=== PATIENT | female | born 1990 | race Caucasian/White ===

== ENCOUNTER 2017-06-11 16:48 | Inpatient (IN) | payer MEDICAID ==
[~2017-06-11] VITALS: Ht 149.9 cm; Wt 82.6 kg
[2017-06-11 16:50] VITALS: BP 141/66
[2017-06-11] MEDS ORDERED: NEOMYCIN/POLYMYXIN/BACITRACIN 0.9 GM/1 PKT TP ONE (17:55)
--- NOTE | 2017-06-11 18:20 | NUR ---
Patient ambulated to bed 4. RN evaluating patient at bedside.
--- NOTE | 2017-06-11 18:21 | NUR ---
PT PRESENTS TO ER W/C/O CHEST PAIN, POINTING TO EPIGASTRIC AREA X 2 DAYS; PAIN ON & OFF. PT DENIES ANY MEDICAL HX. DENIES N/V/D; SKIN IS PINK/WARM/DRY; AAOX4 WITH EVEN AND STEADY GAIT; LUNGS CLEAR BL; HR EVEN AND REGULAR; PT DENIES ANY FEVER, SOB, OR COUGH AT THIS TIME; PATIENT STATES PAIN OF 8/10 AT THIS TIME; VSS; PATIENT POSITIONED FOR COMFORT; HOB ELEVATED; BEDRAILS UP X2; BED DOWN. ER MD MADE AWARE OF PT STATUS.
--- NOTE | 2017-06-11 18:22 | NUR ---
Dr. Rhodes evaluating patient at bedside.
[2017-06-11] MEDS ORDERED: ONDANSETRON 4 MG/2 ML VIAL IVP ONE (18:30)
[2017-06-11] MEDS ORDERED: KETOROLAC 30 MG/ML VIAL IVP ONE (18:30)
--- NOTE | 2017-06-11 19:11 | NUR ---
Pt c/o 05/[address] Rhodes made aware.
[2017-06-11 19:14] LABS: EOSINOPHILS # (AUTO) 0.1 K/uL (0-0.4); HEMOGLOBIN 14.3 g/dL (12.0-16.0)
[2017-06-11] MEDS ORDERED: MORPHINE SULFATE 4 MG/ML SYR IVP ONE (19:15)
--- NOTE | 2017-06-11 19:15 | NUR ---
Pt report given to TRINI LYON. Transfer of care at this time.
[2017-06-11 19:25] LABS: BASOPHILS # (AUTO) 0.4 K/uL (0.00-0.22); BASOPHILS % (AUTO) 1.9 % (0.0-2.0); EOSINOPHILS % (AUTO) 0.7 % (0.0-4.0); HEMATOCRIT 42.6 % (36-48); LYMPHOCYTES # (AUTO) 1.9 K/uL (2.5-16.5); LYMPHOCYTES % (AUTO) 9.4 % (20.5-51.1); MEAN CORPUSCULAR HEMOGLOBIN 30 pg (27-31); MEAN CORPUSCULAR HGB CONC 33 g/dL (33-37); MEAN CORPUSCULAR VOLUME 89 fL (80-94); MONOCYTES # (AUTO) 1.4 K/uL (0.8-1.0); MONOCYTES % (AUTO) 6.8 % (1.7-9.3); NEUTROPHILS # (AUTO) 16.5 K/uL (1.8-7.7); NEUTROPHILS % (AUTO) 81.2 % (42.2-75.2); PLATELET COUNT (AUTO) 266 K/uL (140-450); RED BLOOD CELL COUNT(AUTO) 4.81 MIL/uL (4.20-5.40); WHITE BLOOD COUNT (AUTO) 20.3 K/uL (4.8-10.8)
--- NOTE | 2017-06-11 19:36 | NUR ---
Pt resting comfortably at this time. 0/10 pain.
[2017-06-11 19:42] LABS: ANION GAP 16.1 (8-16); CARBON DIOXIDE 25.7 mmol/L (21-32); CREATININE 0.9 mg/dL (0.6-1.3); POTASSIUM 3.8 mmol/L (3.5-5.1)
[2017-06-11 19:47] LABS: TOTAL BILIRUBIN 0.6 mg/dL (0.0-1.0)
--- NOTE | 2017-06-11 20:04 | NUR ---
Dr. Bowman re-evaluating patient at bedside.
[2017-06-11] MEDS ORDERED: PIPERACILLIN/TAZOBACTAM 4.5 GM in DEXTROSE 5% 100 ML IV ONE (20:10)
[2017-06-11] MEDS ORDERED: metroNIDAZOLE 500 MG/NS PREMIX 100 ML IV ONE (20:10)
[2017-06-11] MEDS ORDERED: PIPERACILLIN/TAZOBACTAM 2.25 GM VIAL IV ONE (20:21)
[2017-06-11] MEDS ORDERED: NACL 0.9% 1,000 ML IV SCH (20:22)
[2017-06-11] MEDS ORDERED: DOCUSATE SODIUM 100 MG GELCAP PO PRN (20:25)
[2017-06-11] MEDS ORDERED: ONDANSETRON 4 MG/2 ML VIAL IM/IVP PRN (20:25)
[2017-06-11] MEDS ORDERED: NACL 0.9% 1,000 ML IV ONE (20:35)
[2017-06-11] MEDS ORDERED: KETOROLAC 30 MG/ML VIAL IVP PRN (20:35)
--- NOTE | 2017-06-11 20:44 | NUR ---
Patient will be admitted to care of Dr. Sanford. Admited to TELE. Will go to room 119-A. Belongings list completed. Report to Skye FELIZ.
--- NOTE | 2017-06-11 20:49 | NUR ---
Flagyl endorsed to Skye FELIZ to be initiated after Zosyn is completed.
--- NOTE | 2017-06-11 21:00 | NUR ---
RECEIVED REPORT FROM ED RN FOR CONTINUITY OF CARE, 26 Y.O. FEMALE BROUGHT TO UNIT WITH DX: ACUTE CHOLECYSTITIS. SHIFT ASSESSMENT DONE, VITAL SIGNS STABLE. PATIENT IS ALERT AND ORIENTED X4, DISCUSSED PLAN OF CARE WITH PATIENT. NO RESPIRATORY DISTRESS NOTED ON ARRIVAL. PATIENT DENIES PAIN AT THIS TIME. IV PATENT AND INFUSING FLUIDS WELL. SKIN INTACT. WRISTBANDS APPLIED AND MRSA SWAB COLLECTED. PATIENT ORIENTED TO ROOM, CALL LIGHT WITHIN REACH. WILL CONTINUE TO MONITOR.
[2017-06-11 21:30] VITALS: BP 110/67
--- NOTE | 2017-06-11 21:46 | NUR ---
DUE ANTIBIOTICS ADMINISTERED. PATIENT RESTING IN BED, FAMILY MEMBER AT BEDSIDE. WILL CONTINUE TO MONITOR.
[2017-06-11 22:15] LABS: PROTHROMBIN TIME 10.4 secs (10.8-13.4)
[2017-06-11 22:16] LABS: CHOL/HDL RATIO 5.7 (1-4.5); FREE T4 (FREE THYROXINE) 0.96 ng/dL (0.76-1.46); MAGNESIUM 1.9 mg/dL (1.8-2.4); PHOSPHORUS 3.2 mg/dL (2.5-4.9); THYROID STIMULATING HORMONE 2.91 uIU/mL (0.34-3.74)
[2017-06-12] VITALS (9 sets, daily range): BP systolic 99–116; BP diastolic 37–73
--- NOTE | 2017-06-12 00:20 | NUR ---
VITAL SIGNS STABLE, PATIENT DENIES PAIN. CALL LIGHT WITHIN REACH, WILL CONTINUE TO MONITOR.
--- NOTE | 2017-06-12 02:15 | NUR ---
PATIENT ASLEEP AT THIS TIME, NO DISTRESS OR DISCOMFORT NOTED. CALL LIGHT WITHIN REACH, WILL CONTINUE TO MONITOR.
--- NOTE | 2017-06-12 04:07 | NUR ---
VITAL SIGNS STABLE, PATIENT DENIES PAIN AT THIS TIME. SAFETY MEASURES ENFORCED, CALL LIGHT WITHIN REACH.
[2017-06-12] MEDS ORDERED: PIPERACILLIN/TAZOBACTAM 3.375 GM in DEXTROSE 5% 50 ML IV SCH (05:00)
[2017-06-12] MEDS ORDERED: PIPERACILLIN/TAZOBACTAM 3.375 GM VIAL IV ONE (05:21)
[2017-06-12] MEDS: NACL 0.9% 1,000 ML IV SCH ×3 (05:32→10:51)
[2017-06-12] MEDS: metroNIDAZOLE 500 MG/NS PREMIX 100 ML IV SCH ×2 (05:56)
--- NOTE | 2017-06-12 05:56 | NUR ---
PATIENT VOMITED, GIVEN ZOFRAN PER MD ORDER. DUE ANTIBIOTICS ADMINISTERED. WILL CONTINUE TO MONITOR.
[2017-06-12 06:02] LABS: APPEARANCE,URINE CLEAR (CLEAR); BILIRUBIN,URINE NEGATIVE (NEGATIVE); BLOOD, URINE NEGATIVE (NEGATIVE); LEUKOCYTE ESTERASE ,URINE NEGATIVE (NEGATIVE); NITRITE, URINE NEGATIVE (NEGATIVE); PH,URINE 6.5 (5.0-9.0); UGLUCOSE NEGATIVE (NEGATIVE)
[2017-06-12 06:50] LABS: BASOPHILS # (AUTO) 0.2 K/uL (0.00-0.22); BASOPHILS % (AUTO) 1.5 % (0.0-2.0); EOSINOPHILS % (AUTO) 0.3 % (0.0-4.0); HEMATOCRIT 37.9 % (36-48); HEMOGLOBIN 12.9 g/dL (12.0-16.0); LYMPHOCYTES # (AUTO) 1.1 K/uL (2.5-16.5); LYMPHOCYTES % (AUTO) 9.9 % (20.5-51.1); MEAN CORPUSCULAR HEMOGLOBIN 30 pg (27-31); MEAN CORPUSCULAR HGB CONC 34 g/dL (33-37); MEAN CORPUSCULAR VOLUME 89 fL (80-94); MONOCYTES # (AUTO) 0.5 K/uL (0.8-1.0); MONOCYTES % (AUTO) 4.6 % (1.7-9.3); NEUTROPHILS # (AUTO) 9.2 K/uL (1.8-7.7); NEUTROPHILS % (AUTO) 83.7 % (42.2-75.2); PLATELET COUNT (AUTO) 224 K/uL (140-450); RED BLOOD CELL COUNT(AUTO) 4.26 MIL/uL (4.20-5.40); RED CELL DISTRIBUTION WIDTH 11.8 % (11.6-13.7)
[2017-06-12 07:06] LABS: COLOR,URINE AMBER (YELLOW)
[2017-06-12 07:20] LABS: ANION GAP 14.2 (8-16); CREATININE 0.9 mg/dL (0.6-1.3); POTASSIUM 4.2 mmol/L (3.5-5.1)
--- NOTE | 2017-06-12 07:24 | NUR ---
ENDORSED PATIENT TO DAY RN FOR CONTINUITY OF CARE, PATIENT IS IN STABLE CONDITION.
--- NOTE | 2017-06-12 07:25 | NUR ---
RECEIVED REPORT FROM PM NURSE FOR CONTINUITY OF CARE. PT AAO. RESP EVEN AND UNLABORED. INITIAL ASSESSMENT DONE. IV INTACT, NO SWELLING OR REDNESS NOTED. SKIN WARM AND DRY. NO S/S OF DISTRESS. PT DENIES PAIN OR DISCOMFORT. PLAN OF CARE DISCUSSED WITH PT, VERBALIZED UNDERSTANDING. SAFETY MEASURES IN PLACED. SIDE RAILS UP, BED LOCKED ON LOW POSITION, CALL LIGHT WITHIN REACH. WILL CONTINUE TO MONITOR.
--- NOTE | 2017-06-12 08:00 | NUR ---
FAMILY MEMBERS AT BEDSIDE.
--- NOTE | 2017-06-12 08:53 | NUR ---
PATIENT HAS BEEN SCREENED AND CATEGORIZED MODERATE NUTRITION RISK. PATIENT WILL BE SEEN WITHIN 3-5 DAYS OF ADMISSION. 06/14/17-06/16/[address]
[2017-06-12] MEDS: HYDROcodone/APAP 7.5/325 MG 1 TAB PO PRN (08:59)
[2017-06-12] MEDS: LACTOBACILLUS RHAMNOSUS GG 1 EACH CAP PO SCH (09:00)
--- NOTE | 2017-06-12 09:50 | NUR ---
PT IN BED, FAMILY MEMBERS AT BEDSIDE. RESP EVEN AND UNLABORED. NO S/S OF DISTRESS, RESTLESSNESS, OR SOB. DENIES ANY FURTHER NEEDS AT THIS TIME. SAFETY MEASURES IN PLACED. WILL CONTINUE TO MONITOR
[2017-06-12] MEDS ORDERED: KETOROLAC 30 MG/ML VIAL IVP PRN ×2 (10:15)
[2017-06-12] MEDS ORDERED: SEVOFLURANE 250 ML BTL INH ONE (12:32)
[2017-06-12] MEDS ORDERED: ROCURONIUM 50 MG/5 ML VIAL IV ONE ×2 (12:32→14:45)
--- NOTE | 2017-06-12 12:36 | NUR ---
PT IN BED, FAMILY AT BEDSIDE. RESP EVEN AND UNLABORED. NO S/S OF DISTRESS. DENIES PAIN OR ANY FURTHER NEEDS. SAFETY MEASURES IN PLACED. WILL CONTINUE TO MONITOR.
[2017-06-12] MEDS: PIPER/TAZO 3.375GM/D5W PREMIX 50 ML IV SCH ×2 (13:04→20:16)
--- NOTE | 2017-06-12 14:30 | NUR ---
PT TO OR FOR PROCEDURE. PT IS IN STABLE CONDITION.
[2017-06-12] MEDS ORDERED: DESFLURANE 240 ML BTL INH ONE (14:45)
[2017-06-12] MEDS ORDERED: KETOROLAC 30 MG/ML VIAL IVP ONE (14:45)
[2017-06-12] MEDS ORDERED: GLYCOPYRROLATE 0.2 MG/ML VIAL IV ONE (14:45)
[2017-06-12] MEDS ORDERED: PROPOFOL 200 MG/20 ML VIAL IV ONE (14:45)
[2017-06-12] MEDS ORDERED: NEOSTIGMINE 1:1000 10 MG/10 ML VIAL IM ONE (14:45)
[2017-06-12] MEDS ORDERED: ONDANSETRON 4 MG/2 ML VIAL IVP ONE (14:45)
[2017-06-12] MEDS ORDERED: BUPIVACAINE-MPF 0.25% 30 ML VIAL INJ ONE (14:51)
[2017-06-12] MEDS ORDERED: HYDROmorphone PFS 2 MG/ML SYR ONE (14:52)
[2017-06-12] MEDS ORDERED: fentaNYL 0.05 MG/ML VIAL ONE (14:52)
[2017-06-12] MEDS ORDERED: DEXAMETHASONE 10 MG/ML VIAL ONE (15:04)
[2017-06-12] MEDS ORDERED: ONDANSETRON 4 MG/2 ML VIAL IVP PRN ×2 (15:15→16:25)
[2017-06-12] MEDS ORDERED: HYDROmorphone 1 MG/ML AMP IVP PRN ×2 (15:15→16:25)
--- NOTE | 2017-06-12 17:30 | NUR ---
PT BACK FROM OR. RECEIVED REPORT FROM OR NURSE FOR CONTINUITY OF CARE. PT AWAKE, RESP EVEN AND UNLABORED. NO S/S OF DISTRESS, OR RESTLESSNESS. PT DENIES PAIN OR DISCOMFORT. 5 SURGICAL INCISIONS WITH GLUE NOTED. NO BLEEDING, PURPLE DISCOLORATION NOTED AROUND THE INCISIONS. IV ON RT FA, 20 G NOTED. PLAN OF CARE DISCUSSED WITH PT, VERBALIZED UNDERSTANDING. FAMILY MEMBERS AT PT BEDSIDE. SAFETY MEASURES IN PLACED. SIDE RAILS UP, BED LOCKED ON LOW POSITION, CALL LIGHT WITHIN REACH. WILL CONTINUE TO MONITOR.
[2017-06-12] MEDS: DEXT 5% / NACL 0.45% 1,000 ML IV SCH (17:42)
--- NOTE | 2017-06-12 17:45 | NUR ---
AWAKE AND ALERT RESPONSIVE TO FITNESS MANAGER VERBAL COMMANDS TOLERATED INCENTIVE SPIROMETRY THERAPY WELL WITHOUT ADVERSE REACTIONS NOTED ENCOURAGED PATIENT TO USE EVERY 1-2 HOURS WHILE AWAKE Addendum: 06/12/17 at 1803 by Kai Gibbons RT MEDARDO/TRINI TO ORDER SUPPLEMENTAL OXYGEN AT 2 LPM VIA NC
--- NOTE | 2017-06-12 19:00 | NUR ---
PT AAO. RESP EVEN AND UNLABORED. NO S/S OF DISTRESS, SOB, OF RESTLESSNESS. DENIES DISCOMFORT, OR FURTHER NEEDS AT THIS TIME. SAFETY MEASURES IN PLACED. WILL CONTINUE TO MONITOR.
--- NOTE | 2017-06-12 19:24 | NUR ---
ENDORSED CARE TO PM NURSE FOR CONTINUITY OF CARE. PT IS IN STABLE CONDITION.
--- NOTE | 2017-06-12 19:25 | NUR ---
RECEIVED REPORT FROM DAY RN FOR CONTINUITY OF CARE. PATIENT IS ALERT AND ORIENTED X4, DISCUSSED PLAN OF CARE WITH PATIENT, VERBALIZED UNDERSTANDING. SHIFT ASSESSMENT DONE, VITAL SIGNS STABLE. NO RESPIRATORY DISTRESS NOTED ON 2L NC. PATIENT DENIES PAIN AT THIS TIME. PT C/O NOT BEING ABLE TO URINATE, ENFORCED POST OP TEACHING, VERBALIZED UNDERSTANDING. IV PATENT AND INFUSING FLUIDS WELL. 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 SAFETY PRECAUTIONS ENFORCED, SCD'S IN PLACE. CALL LIGHT WITHIN REACH, WILL CONTINUE TO MONITOR. FAMILY MEMBERS AT BEDSIDE.
--- NOTE | 2017-06-12 20:16 | NUR ---
PT C/O SEVERE PAIN, VITAL SIGNS STABLE, MEDICATED PER MD ORDER. PATIENT RESTING IN BED AT THIS TIME. FAMILY MEMBERS AT BEDSIDE WILL CONTINUE TO MONITOR.
--- NOTE | 2017-06-12 21:50 | NUR ---
PATIENT AMBULATED TO RESTROOM, BECAME LIGHT HEADED IN RESTROOM, VITAL SIGNS TAKEN AND WITHIN NORMAL LIMITS. RETURNED PATIENT TO BED AND PLACED ON 2L NC. WILL CONTINUE TO MONITOR CLOSELY.
[2017-06-13] VITALS: BP 112/56
--- NOTE | 2017-06-13 00:20 | NUR ---
PATIENT VITAL SIGNS STABLE, ASLEEP AT THIS TIME ON CONTINUOUS PULSE OX WITH O2 SAT AT 95% ON 2L NC. FAMILY MEMBER AT BEDSIDE, WILL CONTINUE TO MONITOR.
[2017-06-13] MEDS: DEXT 5% / NACL 0.45% 1,000 ML IV SCH (00:36)
--- NOTE | 2017-06-13 02:05 | NUR ---
PATIENT HAD TWO EPISODES OF BLADDER INCONTINENCE, STATES SHE HAS THE URGE TO URINATE BUT CANNOT CONTROL IT. INFORMED DR. SANZ, NO NEW ORDERS AT THIS TIME. WILL CONTINUE TO MONITOR.
--- NOTE | 2017-06-13 03:39 | NUR ---
PATIENT SLEEPING AT THIS TIME, NO DISTRESS OR DISCOMFORT NOTED. SAFETY MEASURES ENFORCED, WILL CONTINUE TO MONITOR.
[2017-06-13] MEDS: PIPER/TAZO 3.375GM/D5W PREMIX 50 ML IV SCH ×3 (04:21→22:06)
[2017-06-13] MEDS: HYDROcodone/APAP 7.5/325 MG 1 TAB PO PRN ×3 (04:21→18:05)
[2017-06-13 05:54] LABS: BASOPHILS # (AUTO) 0.2 K/uL (0.00-0.22); BASOPHILS % (AUTO) 1.3 % (0.0-2.0); HEMATOCRIT 41.6 % (36-48); HEMOGLOBIN 13.7 g/dL (12.0-16.0); LYMPHOCYTES # (AUTO) 0.7 K/uL (2.5-16.5); LYMPHOCYTES % (AUTO) 5.2 % (20.5-51.1); MEAN CORPUSCULAR HEMOGLOBIN 30 pg (27-31); MEAN CORPUSCULAR HGB CONC 33 g/dL (33-37); MEAN CORPUSCULAR VOLUME 91 fL (80-94); MONOCYTES # (AUTO) 0.5 K/uL (0.8-1.0); NEUTROPHILS # (AUTO) 11.1 K/uL (1.8-7.7); NEUTROPHILS % (AUTO) 89.5 % (42.2-75.2); PLATELET COUNT (AUTO) 235 K/uL (140-450); RED CELL DISTRIBUTION WIDTH 11.9 % (11.6-13.7); WHITE BLOOD COUNT (AUTO) 12.5 K/uL (4.8-10.8)
[2017-06-13 07:00] LABS: MAGNESIUM 1.9 mg/dL (1.8-2.4); PHOSPHORUS 3.4 mg/dL (2.5-4.9)
--- NOTE | 2017-06-13 07:00 | NUR ---
Weaned to room air.
[2017-06-13 07:03] LABS: ALBUMIN 3.5 g/dL (3.4-5.0); ANION GAP 17.4 (8-16); CARBON DIOXIDE 22.7 mmol/L (21-32); POTASSIUM 4.1 mmol/L (3.5-5.1)
--- NOTE | 2017-06-13 07:17 | NUR ---
ENDORSED PATIENT TO DAY RN FOR CONTINUITY OF CARE, PATIENT IS IN STABLE CONDITION.
--- NOTE | 2017-06-13 07:20 | NUR ---
RECEIVED REPORT FROM PM NURSE FOR CONTINUITY OF CARE. PT SLEEPING, EASILY AWAKENS. INITIAL ASSESSMENT DONE. RESP EVEN AND UNLABORED. NO S/S OF DISTRESS, RESTLESSNESS, OR SOB. SKIN IS WARM AND DRY. IV INTACT, NO REDNESS OR SWELLING NOTED. 5 SURGERY INCISIONS NOTED ON THE ABDOMEN. PLAN OF CARE DISCUSSED WITH PT, VERBALIZED UNDERSTANDING. SAFETY MEASURES IN PLACED, SIDE RAILS UP, BED LOCKED ON LOW POSITION, CALL LIGHT WITHIN REACH. WILL CONTINUE TO MONITOR
[2017-06-13 07:30] LABS: CREATININE 0.7 mg/dL (0.6-1.3)
[2017-06-13 08:00] VITALS: BP 113/65
[2017-06-13] MEDS: NACL 0.9% 1,000 ML IV SCH ×2 (09:10→19:10)
[2017-06-13] MEDS: LACTOBACILLUS RHAMNOSUS GG 1 EACH CAP PO SCH (09:52)
--- NOTE | 2017-06-13 10:00 | NUR ---
PT AMBULATED TO CHAIR WITH STEADY GAIT. TOLERATED WELL. DENIES SOB, OR DISCOMFORT. NO S/S OF DISTRESS. INSTRUCTED PT TO USE CALL LIGHT BEFORE GETTING UP OR AMBULATING. SAFETY MEASURES IN PLACED. WILL CONTINUE TO MONITOR.
--- NOTE | 2017-06-13 12:30 | NUR ---
PT SLEEPING IN BED QUIETLY, AWAKENS EASILY. RESP EVEN AND UNLABORED. NO S/S OF DISTRESS. WILL CONTINUE TO MONITOR.
--- NOTE | 2017-06-13 15:00 | NUR ---
PT SLEEPING, EASILY AWAKENS. RESP EVEN AND UNLABORED. NO S/S OF DISTRESS. SAFETY MEASURES IN PLACED. WILL CONTINUE TO MONITOR.
[2017-06-13 16:00] VITALS: BP 106/59
--- NOTE | 2017-06-13 18:06 | NUR ---
PT C/O 03/01 PAIN, MEDICATED WITH PAIN MEDS PER MD ORDER. TOLERATED WELL. NO S/S OF DISTRESS. WILL CONTINUE TO MONITOR.
--- NOTE | 2017-06-13 19:30 | NUR ---
ENDORSED CARE TO PM NURSE FOR CONTINUITY OF CARE. PT IS IN STABLE CONDITION.
--- NOTE | 2017-06-13 19:31 | NUR ---
RECEIVED PATIENT REPORT FROM MORNING NURSE. PATIENT IS AWAKE, ALERT AND ORIENTED. PATIENT'S FAMILY IS AT BEDSIDE. NO SIGNS AND SYMPTOMS OF DISTRESS NOTED. NO COMPLAINTS OF PAIN AT THIS TIME. IV SITE NOTED ON RIGHT FOREARM. IVF INFUSING WELL. BED IN LOWEST POSITION, SIDE RAILS UP AND CALL LIGHT WITHIN REACH. WILL CONTINUE TO MONITOR.
[2017-06-13] MEDS: ACETAMINOPHEN 325 MG TAB PO PRN (19:59)
--- NOTE | 2017-06-13 23:00 | NUR ---
CHECKED ON PATIENT. PATIENT IS ASLEEP. NO SIGNS AND SYMPTOMS OF DISTRESS NOTED. BED IN LOWEST POSITION, SIDE RAILS UP AND CALL LIGHT WITHIN REACH.
[2017-06-14] VITALS: BP 111/53
[2017-06-14] MEDS: HYDROcodone/APAP 7.5/325 MG 1 TAB PO PRN (00:56)
--- NOTE | 2017-06-14 03:00 | NUR ---
CHECKED ON PATIENT. PATIENT IS ASLEEP. NO SIGNS AND SYMPTOMS OF DISTRESS NOTED. BED IN LOWEST POSITION, SIDE RAILS UP AND CALL LIGHT WITHIN REACH
[2017-06-14] MEDS: PIPER/TAZO 3.375GM/D5W PREMIX 50 ML IV SCH ×3 (04:14→21:40)
[2017-06-14] MEDS: NACL 0.9% 1,000 ML IV SCH ×2 (04:17→14:27)
[2017-06-14] MEDS: ACETAMINOPHEN 325 MG TAB PO PRN (06:02)
[2017-06-14 06:15] LABS: BASOPHILS # (AUTO) 0.6 K/uL (0.00-0.22); BASOPHILS % (AUTO) 4.7 % (0.0-2.0); EOSINOPHILS % (AUTO) 0.3 % (0.0-4.0); HEMATOCRIT 38.5 % (36-48); HEMOGLOBIN 12.9 g/dL (12.0-16.0); LYMPHOCYTES # (AUTO) 3.9 K/uL (2.5-16.5); LYMPHOCYTES % (AUTO) 31.9 % (20.5-51.1); MEAN CORPUSCULAR HEMOGLOBIN 30 pg (27-31); MEAN CORPUSCULAR HGB CONC 33 g/dL (33-37); MEAN CORPUSCULAR VOLUME 90 fL (80-94); MONOCYTES # (AUTO) 0.8 K/uL (0.8-1.0); MONOCYTES % (AUTO) 6.5 % (1.7-9.3); NEUTROPHILS # (AUTO) 6.9 K/uL (1.8-7.7); NEUTROPHILS % (AUTO) 56.6 % (42.2-75.2); PLATELET COUNT (AUTO) 266 K/uL (140-450); RED BLOOD CELL COUNT(AUTO) 4.27 MIL/uL (4.20-5.40); RED CELL DISTRIBUTION WIDTH 12.1 % (11.6-13.7)
[2017-06-14 06:42] LABS: ANION GAP 15.3 (8-16); CARBON DIOXIDE 23.1 mmol/L (21-32); CREATININE 0.9 mg/dL (0.6-1.3); POTASSIUM 3.4 mmol/L (3.5-5.1)
[2017-06-14 06:48] LABS: MAGNESIUM 1.6 mg/dL (1.8-2.4); PHOSPHORUS 3.1 mg/dL (2.5-4.9)
[2017-06-14] MEDS ORDERED: BISACODYL 10 MG SUPP RC SCH (07:00)
[2017-06-14] MEDS ORDERED: MAG SULF 2000 MG/WATER PREMIX 50 ML IV SCH (07:00)
[2017-06-14] MEDS ORDERED: POTASSIUM CHLORIDE 10 MEQ TABER PO SCH (07:00)
[2017-06-14 07:17] LABS: WHITE BLOOD COUNT (AUTO) 12.2 K/uL (4.8-10.8)
--- NOTE | 2017-06-14 07:22 | NUR ---
PATIENT REPORT GIVEN TO MORNING NURSE. PATIENT IS IN STABLE CONDITION
--- NOTE | 2017-06-14 07:29 | NUR ---
RECEIVED PT IN BED. AWAKE. ALERT ORIENTEDX4. NO SOB NOTED. DENIES ANY PAIN OR DISCOMFORT AT THIS TIME. POSITIVE BOWEL SOUNDS NOTED. NO GAS/BOWEL MOVEMENT YET. ENCOURAGED PT TO AMBULATE. PT AMBULATORY. SAFETY PRECAUTION IN PLACE. CALL LIGHT WITHIN REACH.
[2017-06-14 08:00] VITALS: BP 114/72
[2017-06-14] MEDS: LACTOBACILLUS RHAMNOSUS GG 1 EACH CAP PO SCH (08:41)
[2017-06-14] MEDS: POLYETHYLENE GLYCOL 17 GM/PKT PO SCH ×2 (08:42→20:48)
--- NOTE | 2017-06-14 09:30 | NUR ---
PT AMBULATING ALONG THE HALLWAY. TOLERATED WELL.
--- NOTE | 2017-06-14 10:30 | NUR ---
IV LINE ON RIGHT FOREARM GOT INFILTRATED, IV CANNULA REMOVED AND INTACT. REINSERTED A NEW IV LINE ON LEFT FOREARM. INTACT, PATENT, FLUSHING WELL.
--- NOTE | 2017-06-14 11:36 | NUR ---
PT VERBALIZED SHE DOEN'T HAVE ANY BOWEL MOVEMENT YET. BUT ALREADY PASSED GAS. NEW ORDER DULCOLAX SUP, OFFERED TO PT FOR CONSTIPATION, PT REFUSED. OFFERED COLACE 100MG INSTEAD AND PT ACCEPTED, TAKEN PO.
[2017-06-14] MEDS ORDERED: DOCUSATE SODIUM 100 MG GELCAP PO SCH (11:55)
--- NOTE | 2017-06-14 12:04 | NUR ---
COLACE 100 MG, ACCIDENTALLY DROPPED PHARMACY MADE AWARE. 1X DOSE MADE.
--- NOTE | 2017-06-14 14:30 | NUR ---
PT SLEEPING RIGHT NOW. NO SOB, NO SIGNS AND SYMPTOMS OF ACUTE PAIN OR DISCOMFORT NOTED AT THIS TIME.
[2017-06-14 16:00] VITALS: BP 119/69
--- NOTE | 2017-06-14 19:26 | NUR ---
PT KEPT CLEAN, DRY AND COMFORTABLE, NEEDS ATTENDED. NO SOB DENIES ANY PAIN OR DISCOMFORT AT THIS TIME. NO BM YET, ENCOURAGED TO AMBULATE. ENDORSED TO NEXT SHIFT ON STABLE CONDITION FOR CONTINUITY OF CARE.
--- NOTE | 2017-06-14 19:30 | NUR ---
PATIENT IS CURRENTLY RESTING IN BED WITH FAMILY AT BEDSIDE PATIENT HAVING DINNER IVF INFUSING WELL IV SITE PATENT.PATIENT DENIES ANY PAIN OR ANY NAUSEA AT THIS TIME. PATIENT ENCOURAGED TO AMBULATE AND IF SHE NEEDS ASSISTANCE TO CALL FOR ASSISTANCE PATIENT VERBALIZES UNDERSTANDING.INCENTIVE SPIROMETER AT BEDSIDE FOR BREATHING EXERCISES EDUCATION GIVEN ON THE IMPORTANCE TO USE THE INCENTIVE SPIROMETER PATIENT VERBALIZES UNDERSTANDING.I WILL CHECK HER ABDOMINAL INCISIONS LATER FAMILY AT BEDSIDE AT THIS TIME.CALL LIGHT WITHIN REACH WILL CONTINUE TO MONITOR.
--- NOTE | 2017-06-14 19:30 | NUR ---
Patient's Plan of Care was discussed and reviewed with CUSTOM TAILOR APPRENTICE: CELENA SMITH
[2017-06-14 20:00] VITALS: BP 128/55
--- NOTE | 2017-06-14 20:00 | NUR ---
PATIENT AMBULATED TO THE BATHROOM AND BACK TO BED I GAVE HER A MESH UNDERWEAR AND A PERIPAD PATIENT STATES,"I STARTED MY PERIOD." PATIENT CONTINUES TO DENY PAIN. PATIENT ABDOMINAL INCISIONS CHECKED WHILE PATIENT IS LAYING IN THE BED THEY ARE CURRENTLY DRY AND INTACT OPEN TO AIR. PATIENT CURRENTLY STABLE CALL LIGHT WITHIN REACH WILL CONTINUE TO MONITOR.
--- NOTE | 2017-06-14 20:48 | NUR ---
PATIENT EDUCATED ON THE IMPORTANCE OF TAKING THE MIRALAX AND PATIENT VERBALIZES UNDERSTANDING. PATIENT IS WALKING AND SHE IS PASSING GAS BUT NO BM YET ENCOURAGED TO DRINK FLUIDS.PATIENT VERBALIZES UNDERSTANDING.
--- NOTE | 2017-06-15 | NUR ---
PATIENT SEEN AMBULATING IN THE HALLWAY AND BACK TO BED PATIENT INSTRUCTED TO ONLY AMBULATE SHE CAN TOLERATE.PATIENT VERBALIZES UNDERSTANDING.WILL CONTINUE TO MONITOR.
[2017-06-15] MEDS: NACL 0.9% 1,000 ML IV SCH (01:10)
--- NOTE | 2017-06-15 02:27 | NUR ---
PATIENT CURRENTLY SLEEPING IN NO DISTRESS IVF INFUSING WELL IV SITE PATENT NO PAIN OR DISCOMFORT NOTED.
--- NOTE | 2017-06-15 03:49 | NUR ---
PATIENT SLEEPING WELL IN BED AT THIS TIME NO PAIN OR DISCOMFORT NOTED.IVF INFUSING WELL IV SITE PATENT.CALL LIGHT WITHIN REACH.
--- NOTE | 2017-06-15 04:40 | NUR ---
I MADE ROUNDS AND I ASKED THE PATIENT IF SHE IS HAVING ANY PAIN AND OFFERED PAIN MEDICATION PATIENT REFUSED.WILL CONTINUE TO MONITOR.
[2017-06-15] MEDS: PIPER/TAZO 3.375GM/D5W PREMIX 50 ML IV SCH (04:58)
[2017-06-15 05:00] VITALS: BP 110/79
[2017-06-15 05:58] LABS: BASOPHILS # (AUTO) 0.3 K/uL (0.00-0.22); BASOPHILS % (AUTO) 3.4 % (0.0-2.0); EOSINOPHILS # (AUTO) 0.1 K/uL (0-0.4); EOSINOPHILS % (AUTO) 0.8 % (0.0-4.0); HEMATOCRIT 37.9 % (36-48); HEMOGLOBIN 12.9 g/dL (12.0-16.0); LYMPHOCYTES # (AUTO) 2.1 K/uL (2.5-16.5); LYMPHOCYTES % (AUTO) 24.5 % (20.5-51.1); MEAN CORPUSCULAR HEMOGLOBIN 31 pg (27-31); MEAN CORPUSCULAR HGB CONC 34 g/dL (33-37); MEAN CORPUSCULAR VOLUME 90 fL (80-94); MONOCYTES # (AUTO) 0.7 K/uL (0.8-1.0); MONOCYTES % (AUTO) 7.9 % (1.7-9.3); NEUTROPHILS # (AUTO) 5.5 K/uL (1.8-7.7); NEUTROPHILS % (AUTO) 63.4 % (42.2-75.2); PLATELET COUNT (AUTO) 235 K/uL (140-450); RED BLOOD CELL COUNT(AUTO) 4.22 MIL/uL (4.20-5.40); RED CELL DISTRIBUTION WIDTH 11.9 % (11.6-13.7); WHITE BLOOD COUNT (AUTO) 8.7 K/uL (4.8-10.8)
[2017-06-15 06:09] LABS: ANION GAP 11.8 (8-16); CARBON DIOXIDE 25.8 mmol/L (21-32); CREATININE 0.7 mg/dL (0.6-1.3); POTASSIUM 3.6 mmol/L (3.5-5.1)
--- NOTE | 2017-06-15 06:14 | NUR ---
PATIENT IS CURRENTLY RESTING IN BED IN NO DISTRESS AMBULATING IN THE HALLWAY AND I OFFERED HER PAIN MEDICATION BUT PATIENT REFUSES.CALL LIGHT WITHIN REACH WILL CONTINUE TO MONITOR.
[2017-06-15 06:17] LABS: MAGNESIUM 1.9 mg/dL (1.8-2.4)
--- NOTE | 2017-06-15 07:28 | NUR ---
RECEIVED PT IN BED. AWAKE. ALERT ORIENTEDX4. NO SOB NOTED. DENIES ANY PAIN OR DISCOMFORT AT THIS TIME. PT AMBULATORY. POSITIVE BOWEL SOUNDS NOTED ON FOUR QUADRANTS. PT VERBALIZED SHE ALREADY PASSED A LOT OF GAS. BUT NO BOWEL MOVEMENT YET. ENCOURAGED PT TO AMBULATE MORE, VERBALIZED UNDERSTANDING. SAFETY PRECAUTION IN PLACE. CALL LIGHT WITHIN REACH.
--- NOTE | 2017-06-15 07:37 | NUR ---
PATIENT IS CURRENTLY RESTING IN BED DENIES PAIN IVF INFUSING WELL IV SITE PATENT TRINI CHRISTY AWARE THAT PATIENT HAS BEEN AMBULATING AND HASN'T HAD BM YET BUT PATIENT IS PASSING GAS.PATIENT IS AWARE TO USE THE INCENTIVE SPIROMETER.CALL LIGHT WITHIN REACH TRINI CHRISTY WILL RESUME CARE OF THE PATIENT.
[2017-06-15 08:00] VITALS: BP 119/73
[2017-06-15] MEDS: POLYETHYLENE GLYCOL 17 GM/PKT PO SCH (08:28)
[2017-06-15] MEDS: LACTOBACILLUS RHAMNOSUS GG 1 EACH CAP PO SCH (08:28)
[2017-06-15] MEDS: ACETAMINOPHEN 325 MG TAB PO PRN (08:32)
[2017-06-15] MEDS ORDERED: METR250T2 PO (11:02)
[2017-06-15] MEDS ORDERED: LEVO750T2 PO (11:02)
[2017-06-15] MEDS ORDERED: LACT10CA1 PO (11:03)
[2017-06-15 11:34] VITALS: BP 106/61
--- NOTE | 2017-06-15 12:02 | NUR ---
DISCHARGE INSTRUCTIONS AND HEALTH TEACHINGS GIVEN AND EXPLAINED TO PT. PT VERBALIZED UNDERSTANDING. FAMILY AT BEDSIDE. PT SIGNED DISCHARGE PAPERS. IV CANNULA REMOVED AND INTACT. NAME ARMBAND REMOVED. REMINDED TO GO TO SCHEDULED APPOINTMENT WITH PCP AND SPECIALIST WRITTEN ON DISCHARGE PAPERS. PHOTO ON ABDOMINAL SURGICAL WOUND TAKEN AND IN TO CHART NO DISCHARGE NOTED. ABDOMINAL WOUND HEALING WELL. NO SIGNS AND SYMPTOMS OF INFECTION NOTED.
--- NOTE | 2017-06-15 12:05 | NUR ---
06/15/17 RD INITIAL ASSESSMENT COMPLETED. PLEASE REFER TO NUTRITION ASSESSMENT UNDER CARE ACTIVITY FOR ESTIMATED NUTRITIONAL NEEDS. RD RECOMMENDATIONS / PT EDUCATION: PT IS GETTING READY TO LEAVE HOME. PT EDUCATIONAL MATERIALS PROVIDED / DISCUSSED. PT TO MEAT DISCUSSED GUIDELINES AND EAT HEALTHY / DECREASE FAT INTAKE. GRADUAL WEIGHT LOSS TOWARDS IBW ENCOURAGED. LEANDRO NÚÑEZ MBA, RD
--- NOTE | 2017-06-15 12:05 | NUR ---
PT WHEELED OUT PER ROLLER MECHANIC GOING TO THE HOSPITAL PARKING LOT TO THEIR PRIVATE OWNED VEHICLE. NO SOB NOTED. DENIES ANY PAIN OR DISCOMFORT ATT HIS TIME. PT DISCHARGED ON STABLE CONDITION.
== END 2017-06-15 12:03 | disposition home or self-care (01) | DRG 710 ==
LOC: MED 16:48 → MTU 20:17
PROVIDERS: ADMIT Student in an Organized Health Care Education/Training Program; ATTEND Student in an Organized Health Care Education/Training Program
PROC: 0FT44ZZ Resection of Gallbladder, Percutaneous Endoscopic Approach (ICD-10-PCS; principal; 2017-06-12 14:30)
DX: A41.9 Sepsis, unspecified organism (principal); K80.00 Calculus of gallbladder with acute cholecystitis without obstruction; E78.5 Hyperlipidemia, unspecified; E66.01 Morbid (severe) obesity due to excess calories; F17.210 Nicotine dependence, cigarettes, uncomplicated; E87.6 Hypokalemia; E83.42 Hypomagnesemia; Z82.49 Family history of ischemic heart disease and other diseases of the circulatory system; Z68.36 Body mass index [BMI] 36.0-36.9, adult
CPT/HCPCS: 36415; 71010; 76705; 80048; 80053; 81003; 82150; 82948; 83036; 83605; 83690; 83735; 83880; 84100; 84436; 84439; 84443; 84479; 84702; 85025; 85610; 85730; 87040; 87081; 87086; 88304; 93005; 96374; 96375; 99285; J1100; J1170; J1885; J2270; J2405; J2543; J2704; J2710; J3010; J3475; J3490; J7030; J7060; Q0092